=== PATIENT | female | born 1985 | race American Indian/Alaskan Native ===

== ENCOUNTER 2018-03-04 14:05 | Emergency (ER) | payer MEDICAID ==
[2018-03-04] MEDS ORDERED: NACL 0.9% 1000 ML 1,000 ML IV ONE (14:30)
[2018-03-04 14:53] LABS: Hematocrit 40.3 % (30.3-42.9); Hemoglobin 13.7 gm/dl (10.1-14.3); Mean Corpuscular HGB Conc 34 % (30-34); Mean Corpuscular Volume 101 fl (79-97); Platelet Count 470 K/mm3 (140-440); Red Blood Count 3.97 M/mm3 (3.65-5.03); Red Cell Distribution Width 12.7 % (13.2-15.2)
--- NOTE | 2018-03-04 14:57 | Emergency Department Report ---
HPI - General Chief Complaint: Abdominal Pain Time Seen by Provider: 03/04/18 14:30 - HPI HPI: Room 26 The patient is a 32-year-old female presenting with a chief complaint of "ectopic ." The patient states yesterday she developed some vaginal bleeding and lower abdominal pain felt like a cramp. Patient states she went to an ACADEMIC ADVISEMENT DIRECTOR today and had an ultrasound performed and was diagnosed with an ectopic . The patient states she was sent to the ED for further management and possibly receive medication to "dissolve" the Location: [See above] Duration: [See above] Quality: Cramping Severity: Moderate Modifying factors: [see above] Context: [see above] Mode of transportation: Unknown ED Past Medical Hx - Past Medical History Previous Medical History?: No - Surgical History Past Surgical History?: No - Family History Family history: no significant - Social History Smoking Status: Current Every Day Smoker (1 pack per day) Substance Use Type: None (denies illicit drug use), Alcohol (occasional) ED Review of Systems ROS: Stated complaint: ECTOPIC Other details as noted in HPI Constitutional: no symptoms reported Eyes: denies: eye pain ENT: denies: throat pain Respiratory: no symptoms reported Cardiovascular: denies: chest pain Endocrine: no symptoms reported Gastrointestinal: abdominal pain Genitourinary: denies: dysuria Musculoskeletal: back pain Neurological: denies: headache Physical Exam - Physical Exam Vital Signs: Vital Signs 03/04/18 14:12 Temperature 98.6 F Pulse Rate 113 H Respiratory 20 Rate Blood Pressure 122/88 O2 Sat by Pulse 98 Oximetry Physical Exam: GENERAL: The patient is well-developed well-nourished female sitting on stretcher not appearing to be in acute distress. [] HEENT: Normocephalic. Atraumatic. Extraocular motions are intact. Patient has moist mucous membranes. NECK: Supple. Trachea midline CHEST/LUNGS: Clear to auscultation. There is no respiratory distress noted. HEART/CARDIOVASCULAR: Regular. There is no tachycardia. There is no gallop rub or murmur. ABDOMEN: Abdomen is soft, with mild discomfort to palpation in the suprapubic, left lower quadrant and left upper quadrant. Patient has normal bowel sounds. There is no abdominal distention. SKIN: There is no rash. There is no edema. There is no diaphoresis. NEURO: The patient is awake, alert, and oriented. The patient is cooperative. The patient has normal speech MUSCULOSKELETAL: There is no evidence of acute injury. ED Course Vital Signs 03/04/18 14:12 Temperature 98.6 F Pulse Rate 113 H Respiratory 20 Rate Blood Pressure 122/88 O2 Sat by Pulse 98 Oximetry - Reevaluation(s) Reevaluation #1: 03/04/18 21:11 Patient states she does not wish to be admitted to the hospital and she wants to go home. Patient leaving AGAINST MEDICAL ADVICE - Consultations Consultation #1: 03/04/18 15:[address] Zamarripa. Will call back with ultrasound results 03/04/18 20:14 AC[employer] ADVISEMENT DIRECTOR paged Case discussed with Dr. Zamarripa- states that she can admit the patient for further observation ED Medical Decision Making - Lab Data Result diagrams: 03/04/18 14:29 03/04/18 16:03 Laboratory Tests 03/04/18 03/04/18 03/04/18 14:29 14:29 14:41 WBC 9.6 RBC 3.97 Hgb 13.7 Hct 40.3 MCV 101 H MCH 34 H MCHC 34 RDW 12.7 L Plt Count 470 H Sodium Potassium Chloride Carbon Dioxide Anion Gap BUN Creatinine Estimated GFR BUN/Creatinine Ratio Glucose Calcium HCG, Quant 87.51 H Blood Type A POSITIVE 03/04/18 16:03 WBC RBC Hgb Hct MCV MCH MCHC RDW Plt Count Sodium 137 Potassium 4.3 Chloride 101.4 Carbon Dioxide 23 Anion Gap 17 BUN 4 L Creatinine 0.5 L Estimated GFR > 60 BUN/Creatinine Ratio 8 Glucose 86 Calcium 9.0 HCG, Quant Blood Type - Radiology Data Radiology results: report reviewed (pelvic ultrasound), image reviewed (pelvic ultrasound) [facility] [address] [place] [address] Ultrasound Report Signed Patient: VINCE MENDOZA MR#: [id number] : 1985 Acct:[id number] Age/Sex: 32 / F ADM Date: 03/04/18 Loc: ED Attending Dr: Ordering Physician: BARB SANTOYO MD Date of Service: 03/04/18 Procedure(s): US OB transvaginal Accession Number(s): [id number] cc: BARB SANTOYO MD FINAL REPORT EXAM: US OB TRANSVAGINAL HISTORY: vaginal bleeding, lower abdominal cramping . Quantitative beta hCG 87.51 TECHNIQUE: Real-time sonography was performed of the pelvis endovaginally. Images are submitted for interpretation. PRIORS: None. FINDINGS: The uterus measures 7.9 x 4.3 x 5.0 cm. The endometrial stripe appears normal measuring 12 mm. There is a round hypoechoic lesion in the right uterine fundus consistent with a fibroid measuring 1.3 x 1.1 x 1.3 cm. The right ovary appears normal measuring 2.6 x 1.4 x 2.1 cm. The left ovary appears normal measuring 3.0 x 1.5 x 1.9 cm. Normal appearing ovarian follicles are present bilaterally. Color Doppler evaluation of the ovaries shows flow bilaterally. There is no free pelvic fluid. IMPRESSION: Presently, there is no evidence of IUP. However, an early intrauterine has not been confirmed and ectopic has not been excluded. Close clinical follow-up, serial quantitative beta HCG levels and follow-up ultrasound recommended. Transcribed By: [facility] [place] Dictated By: SAMARIA MCMULLEN MD Electronically Authenticated By: SAMARIA MCMULLEN MD Signed Date/Time: 03/04/182012 DD/ 14 TD/TT: 03/04/182014 - Differential Diagnosis ectopic Critical care attestation.: If time is entered above; I have spent that time in minutes in the direct care of this critically ill patient, excluding procedure time. ED Disposition Clinical Impression: Pelvic pain, Disposition: -07 LEFT AGAINST MED ADVICE Is pt being admited?: No Does the pt Need Aspirin: No Condition: Undetermined Instructions: Abdominal Pain (ED) Referrals: PRIMARY CARE, [Primary Care Provider] - 3-5 Days Time of Disposition: 21:11 (patient leaving AMA)
[2018-03-04] MEDS ORDERED: SUBLIMAZE IV ONE ×2 (15:22→19:52)
[2018-03-04 16:29] LABS: BUN/Creatinine Ratio 8; Blood Urea Nitrogen 4 mg/dL (7-17); Hemolysis Index 34
--- NOTE | 2018-03-04 20:10 | Ultrasound Report ---
FINAL REPORT EXAM: US OB <= 14 WEEKS FETUS HISTORY: vaginal bleeding, lower abdominal cramping quantitative beta HCG 87.51 TECHNIQUE: Real-time sonography was performed of the pelvis transabdominally. Images are submitted f or interpretation. PRIORS: None. FINDINGS: The uterus measures 7.9 x 4.3 x 5.0 cm. The endometrial stripe appears normal measuring 12 mm. There is a round hypoechoic lesion in the right uterine fundus consistent with a fibroid measuring 1.3 x 1. 1 x 1.3 cm. The right ovary appears normal measuring 2.6 x 1.4 x 2.1 cm. The left ovary appears normal measuring 3.0 x 1.5 x 1.9 cm. Normal appearing ovarian follicles are present bilaterally. Color Doppler evaluation of the ovaries shows flow bilaterally. There is no free pelvic fluid. IMPRESSION: Presently, there is no evidence of IUP. However, an early intrauterine has not been confirm ed and ectopic has not been excluded. Close clinical follow-up, serial quantitative beta HC G levels and follow-up ultrasound recommended.
--- NOTE | 2018-03-04 20:13 | Ultrasound Report ---
FINAL REPORT EXAM: US OB TRANSVAGINAL HISTORY: vaginal bleeding, lower abdominal cramping . Quantitative beta hCG 87.51 TECHNIQUE: Real-time sonography was performed of the pelvis endovaginally. Images are submitted for interpretation. PRIORS: None. FINDINGS: The uterus measures 7.9 x 4.3 x 5.0 cm. The endometrial stripe appears normal measuring 12 mm. There is a round hypoechoic lesion in the right uterine fundus consistent with a fibroid measuring 1.3 x 1. 1 x 1.3 cm. The right ovary appears normal measuring 2.6 x 1.4 x 2.1 cm. The left ovary appears normal measuring 3.0 x 1.5 x 1.9 cm. Normal appearing ovarian follicles are present bilaterally. Color Doppler evaluation of the ovaries shows flow bilaterally. There is no free pelvic fluid. IMPRESSION: Presently, there is no evidence of IUP. However, an early intrauterine has not been confirm ed and ectopic has not been excluded. Close clinical follow-up, serial quantitative beta HC G levels and follow-up ultrasound recommended.
[2018-03-04] MEDS ORDERED: NACL 0.9% 1000 ML 1,000 ML IV SCH (21:00)
[2018-03-04 22:24] VITALS: BP 110/72
== END 2018-03-04 22:24 | disposition left against medical advice (07) ==
LOC: ED 14:05
DX: O26.891 Other specified pregnancy related conditions, first trimester (principal); R10.2 Pelvic and perineal pain; O46.91 Antepartum hemorrhage, unspecified, first trimester; F17.210 Nicotine dependence, cigarettes, uncomplicated; Z3A.00 Weeks of gestation of pregnancy not specified
CPT/HCPCS: 36415; 76801; 76817; 80048; 84702; 85027; 86900; 86901; 96374; 96376; 99284; J3010; J7030

== ENCOUNTER 2018-03-06 09:38 | Emergency (ER) | payer MEDICAID ==
[2018-03-06 09:42] VITALS: BP 118/85
--- NOTE | 2018-03-06 11:20 | Emergency Department Report ---
ED Female HPI - General Chief complaint: Recheck/Abnormal Lab/Rx Stated complaint: FOLLOW UP Time Seen by Provider: 03/06/18 11:09 Source: patient Mode of arrival: Ambulatory Limitations: No Limitations - History of Present Illness Initial comments: Merly is 32 yo female who returns to ER for HCG draw. She has potential missed vs ectopic . She was dx'd with at OBGYN office 1-2 weeks ago at 7 weeks gestation. without IUP, ectopic was the considered diagnosis. She was evaluated with HCG 87 in our ED recently. No pain currently. She has had menstrual type vaginal bleeding throughout the . This is Merly's first . She is followed at [facility]. Complaint: vaginal bleeding -: Gradual, week(s) (several) Severity: mild Quality: cramping Consistency: intermittent Improves with: none Worsens with: none Associated Symptoms: vaginal bleeding - Related Data Allergies Allergy/AdvReac Type Severity Reaction Status Date / Time No Known Allergies Allergy Verified 03/06/18 09:41 ED Review of Systems ROS: Stated complaint: FOLLOW UP Other details as noted in HPI Comment: All other systems reviewed and negative Constitutional: denies: fever, malaise Cardiovascular: denies: chest pain ED Past Medical Hx - Social History Smoking Status: Former Smoker Substance Use Type: None ED Physical Exam - General Limitations: No Limitations General appearance: alert, in no apparent distress, other (upset tearful sad) - Head Head exam: Present: atraumatic, normocephalic - Eye Eye exam: Present: normal appearance - ENT ENT exam: Present: mucous membranes moist - Neck Neck exam: Present: normal inspection - Respiratory Respiratory exam: Present: normal lung sounds bilaterally. Absent: respiratory distress, wheezes, rales, rhonchi - Cardiovascular Cardiovascular Exam: Present: regular rate, normal rhythm, normal heart sounds. Absent: systolic murmur, diastolic murmur, rubs, gallop - GI/Abdominal GI/Abdominal exam: Present: soft, normal bowel sounds. Absent: distended, tenderness, guarding, rebound - Extremities Exam Extremities exam: Present: normal inspection - Back Exam Back exam: Present: normal inspection - Neurological Exam Neurological exam: Present: alert, oriented X3 - Psychiatric Psychiatric exam: Present: normal affect, normal mood - Skin Skin exam: Present: warm, dry, intact, normal color. Absent: rash ED Course Vital Signs 03/06/18 09:41 Temperature 98.6 F Pulse Rate 91 H Respiratory 18 Rate Blood Pressure 118/85 O2 Sat by Pulse 100 Oximetry ED Medical Decision Making - Medical Decision Making Merly has downtrending HCG from 87 to 34. I suspect missed . I do not suspect ectopic . 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 She understands return precautions of pain or severe bleeding. She is obviously grieving the loss of this . Critical care attestation.: If time is entered above; I have spent that time in minutes in the direct care of this critically ill patient, excluding procedure time. ED Disposition Clinical Impression: Miscarriage Disposition: DC-01 TO HOME OR SELFCARE Is pt being admited?: No Does the pt Need Aspirin: No Condition: Stable Instructions: Spontaneous Miscarriage (ED) Referrals: PRIMARY CARE, [Primary Care Provider] - 2-3 Days
== END 2018-03-06 11:35 | disposition home or self-care (01) ==
LOC: ED 09:38
DX: O03.9 Complete or unspecified spontaneous abortion without complication (principal); Z87.891 Personal history of nicotine dependence; Z3A.01 Less than 8 weeks gestation of pregnancy
CPT/HCPCS: 36415; 84702; 99283